=== PATIENT | male | born 1945 | race Caucasian/White ===

== ENCOUNTER → 2019-03-23 | Outpatient (CLI) | payer MEDICARE ==
[2019-03-23 23:07] LABS: HEMOGLOBIN A1C 5.3 % (4.8-5.6)
[2019-03-25 14:11] LABS: ALBUM 3.9 g/dL (2.9-4.4); ALPHA 1 0.3 g/dL (0.0-0.4); ALPHA 2 0.8 g/dL (0.4-1.0); GAMMA 1.3 g/dL (0.4-1.8); PROTEIN TOTAL 7.3 g/dL (6.0-8.5); SPEP AG RATIO 1.1 (0.7-1.7)
[2019-03-25 15:11] LABS: ANA INTERP Negative (.)
== END | disposition home or self-care (01) ==
LOC: LAB 12:07
PROVIDERS: ATTEND Psychiatry & Neurology Neurology with Special Qualifications in Child Neurology
DX: G62.89 Other specified polyneuropathies (principal); R53.1 Weakness; R20.0 Anesthesia of skin; Z86.39 Personal history of other endocrine, nutritional and metabolic disease
CPT/HCPCS: 36415; 82607; 82746; 82947; 83036; 84165; 84443; 85651; 86038